=== PATIENT | female | born 1945 | race African-American/Black ===

== ENCOUNTER 2018-06-10 20:25 | Observation (INO) ==
--- NOTE | 2018-06-10 14:13 | EKG Report ---
Test Performed on : 06/10/2018 2:13:37 PM Test Reason : CP Blood Pressure : / mmHG Vent. Rate : 064 BPM Atrial Rate : 064 BPM P-R Int : 166 ms QRS Dur : 076 ms QT Int : 438 ms P-R-T Axes : 075 053 059 degrees QTc Int : 451 ms Normal sinus rhythm. Normal ECG When compared with ECG of 11-APR-2018 09:42, (Unconfirmed) No significant change was found Unconfirmed Result
--- NOTE | 2018-06-10 14:47 | Diag Imaging Result Doc PS360 ---
EXAM: CHEST-2 VIEWS 06/10/2018 HISTORY: chest pain TECHNIQUE: PA and lateral chest COMMENT: There is a Port-A-Cath on the right with its tip just above the right atrium. There is apparent fibrosis in the posterior costophrenic sulcus laterally on the right. Overall there has been no significant change since 02/17/2016. IMPRESSION: Stable chest. Electronically signed by Henry Paez 06/10/2018 2:45 PM
[2018-06-10 15:23] LABS: BASO# 0.04 X1000 (0.0-0.2); BASO% 0.8 % (0.0-0.8); EOS% 7.6 % (0.0-10.0); HEMATOCRIT 41.3 % (37.0-47.0); HEMOGLOBIN 13.6 g/dL (12.0-16.0); LYMPH# 2.18 X1000 (1.2-3.4); LYMPH% 41.7 % (20.5-51.1); MCH 32.2 PG (27-31); MCHC 32.9 g/dL (33-37); MCV 97.9 FL (81-99); MONO# 0.51 X1000 (0.11-0.59); MONO% 9.8 % (1.7-9.3); MPV 11.2 FL (7.4-10.4); NEUT% 40.1 % (42.2-75.2); PLT 149 X1000 (130-400); RBC 4.22 XMIL (4.2-5.4); RDW 12.5 % (11.5-14.5); WBC 5.23 X1000 (4.8-10.8)
[2018-06-10 15:31] LABS: INR 0.99; PROTIME 13.9 Seconds (11.0-16.0)
[2018-06-10 15:32] LABS: PTT 31.1 Seconds (22.3-41.8)
[2018-06-10 15:34] LABS: ALB/GLOB RATIO 1.4; ALBUMIN 3.7 g/dL (3.5-5.0); CALCIUM 8.2 mg/dL (8.8-10.2); CREATININE 1.1 mg/dL (0.5-0.9); POTASSIUM 3.6 mmol/L (3.5-5.1); TOTAL BILIRUBIN 0.6 mg/dL (0.20-1.00); TOTAL PROTEIN 6.3 g/dL (6.3-8.3)
--- NOTE | 2018-06-10 18:59 | PROVIDER DOCUMENTATION ---
This chart was entered by Sonia Michael Scribe, acting as scribe for Benton Vega MD. HPI-Chest Pain - General Chief Complaint: Chest Pain Stated Complaint: CHEST PAIN,SHOULDER,BACK PAIN Time Seen by Provider: 06/10/18 14:28 Source: patient, family () Allergies/Adverse Reactions: Patient Allergies Allergy/AdvReac Type Severity Reaction Status Date / Time codeine AdvReac Intermediate NAUSEA Verified 04/11/18 11:05 morphine AdvReac Intermediate ITCHING Verified 04/11/18 11:05 Home Medications: Home Medication List Medication Instructions Recorded Confirmed Last Taken Type Amlodipine Besylate [Norvasc] 10 mg PO QAM 02/17/12 04/11/18 08/08/17 06:00 History Aspirin 325 mg PO QAM 09/22/12 04/11/18 08/08/17 06:00 History Metoprolol [Lopressor] 25 mg PO QAM 02/20/13 04/11/18 08/08/17 06:00 History Ezetimibe [Zetia] 10 mg PO QHS 08/12/14 04/11/18 08/07/17 21:00 History Nitroglycerin Sl [Nitroglycerin] 0.4 mg SL PRN PRN 02/03/15 04/11/18 07/20/15 History Potassium Chloride 1 each PO DAILY 05/25/15 04/11/18 08/08/17 06:00 History SIMVAstatin [Zocor] 40 mg PO HS 05/25/15 04/11/18 08/07/17 21:00 History Triamterene/Hydrochlorothiazid 1 each PO DAILY 05/25/15 04/11/18 08/08/17 06:00 History [Triamterene-Hctz 37.5-25 mg Cp] Promethazine [Phenergan] 1 - 2 tab PO Q6H PRN PRN #18 tablet 07/08/15 04/11/18 07/20/15 Rx Tramadol [Ultram] 50 mg PO Q6H PRN PRN #30 tablet 07/08/15 04/11/18 08/08/17 16: 00 Rx Famotidine [Pepcid] 20 mg PO DAILY PRN 02/17/16 04/11/18 Unknown History Hydrocodone/APAP 5 mg/325 mg 1 ea PO Q6H PRN PRN #12 tab 08/08/17 04/11/18 Unknown Rx [[place]-5] Ondansetron Odt [Zofran 4 mg Odt] 4 mg PO Q6H PRN PRN #20 tab 08/08/17 04/11/18 Unknown Rx Methocarbamol [Robaxin-750] 750 mg PO BID PRN #60 tablet 04/11/18 Unknown Rx Naproxen 500 mg PO BID PRN PRN #60 tablet 04/11/18 Unknown Rx - History of Present Illness-CP Nature of Presenting Problem: 73 yobf presents to the ed with her at bedside. pt sts has intermittent chest pain 8/10 radiating into eft neck and shoulder onset last night pt sts still present on exam Location: reports: substernal Chest Pain Radiation: reports: neck, shoulders Quality of Pain: reports: aching Severity in ED: moderate (8/10) Onset/Duration: last night Timing: still present, intermittent Context/Activities at Onset: reports: light activity Modifying Factors: improves with: nothing Associated Symptoms: reports: denies symptoms Nitro Today/Relief: no nitro taken today Aspirin Treatment Today: 325 mg x 1, provided at home Similar Symptoms Previously?: Yes Recently Seen Here or By Another Healthcare Provider: No Review of Systems - Adult - REVIEW OF SYSTEMS - ADULT Constitutional: denies: chills, fever Eyes: reports: no symptoms reported Ears, Nose, Mouth & Throat: reports: no symptoms reported Cardiovascular: reports: see HPI, chest pain, edema. denies: palpitations, syncope Respiratory: denies: cough, shortness of breath, wheezing Gastrointestinal: denies: abdominal pain, diarrhea, nausea Genitourinary: reports: no symptoms reported Musculoskeletal: reports: see HPI, joint pain (shoulder), neck pain Integumentary: reports: no symptoms reported Neurological: denies: dizziness/vertigo, headache/migraines Psychiatric: reports: no symptoms reported Endocrine: reports: no symptoms reported Hematologic/Lymphatic: reports: no symptoms reported Allergic/Immunologic: reports: no symptoms reported All Other Systems: Reviewed and Negative Past History - Adult - PAST MEDICAL HISTORY-ADULT Review of Records: reports: Old Records Reviewed, Nursing Assessment Review, Medications Reviewed, Social history reviewed & non-contributory. Major Childhood Illnesses: reports: denies history Cardiovascular: reports: CAD, HTN, hyperlipidemia Respiratory: reports: COPD Gastrointestinal: reports: GERD Obstetrical/Gynecological: reports: denies history Genitourinary: reports: denies history Musculoskeletal: reports: other (gout) Neurological: reports: TIA Psychiatric: reports: anxiety Endocrine/Immune: reports: denies history Other Conditions: reports: denies history - PRIOR SURGERIES/PROCEDURES Surgical/Procedure History: reports: appendectomy, colonoscopy, cholecystectomy (breast biopsy, FEM-POP Bypass), cardiac stent (x2), hysterectomy, other ( breast biopsy, FEM-POP ) - PRIOR HOSPITALIZATIONS Prior Hospitalizations: reports: none - IMMUNIZATION STATUS Childhood Immunizations: See Nurse Assessment Flu Vaccine: See Nurse Assessment - FAMILY HISTORY Family History: reviewed, not pertinent - SOCIAL HISTORY Smoking: quit greater than 1 year Substance Use: denies Alcohol Use Frequency: never Living Situation: family Physical Exam-General - PHYSICAL EXAM-ADULT Initial Vital Signs Reviewed: Yes - CONSTITUTIONAL General Appearance: alert, mild distress, obese - EYES Eyes: PERRL/EOMI, pink conjunctivae - HEAD, EARS, NOSE, MOUTH & THROAT HENMT: moist mucous membranes, normal ENT inspection - NECK Neck: non-tender, full range of motion - RESPIRATORY Respiratory: lungs clear, normal breath sounds - CARDIOVASCULAR Cardiovascular: normal peripheral pulses, regular rate, rhythm - GASTROINTESTINAL (ABDOMEN) Abdominal Exam: normal bowel sounds, non tender, soft - LYMPHATIC Lymphatic: no adenopathy - MUSCULOSKELETAL Back Exam: normal inspection, no CVA tenderness, no vertebral tenderness Extremity: normal range of motion, non-tender, normal gait, normal capillary refill, swelling (BLE edema) - SKIN Integumentary: normal color, normal turgor, warm/dry - NEUROLOGIC Neurologic: grossly normal, no motor/sensory deficits - PSYCHIATRIC Psych/Mental Status: normal mood/affect, normal thought content, normal thought process, oriented x 3 Progress - PLAN OF CARE/RESULTS Progress/Plan/Lab Results: Vital Signs - 8 hr 06/10/18 14:05 06/10/18 17:54 Temperature 98.3 F Pulse Rate 67 63 Respiratory Rate 18 12 Blood Pressure 184/69 146/87 O2 Sat by Pulse Oximetry 99 95 Laboratory Results - last 24 hr 06/10/18 06/10/18 06/10/18 15:03 15:03 15:03 WBC 5.23 RBC 4.22 Hgb 13.6 Hct 41.3 MCV 97.9 MCH 32.2 H MCHC 32.9 L RDW Std Deviation 12.5 Plt Count 149 MPV 11.2 H Immature Gran % (Auto) 0.0 Neut % (Auto) 40.1 L Lymph % (Auto) 41.7 [place] % (Auto) 9.8 H Eos % (Auto) 7.6 Baso % (Auto) 0.8 Immature Gran # (Auto) 0.00 Neut # (Auto) 2.10 Lymph # (Auto) 2.18 [place] # (Auto) 0.51 Eos # (Auto) 0.40 Baso # (Auto) 0.04 PT INR PTT (Actin FS) D-Dimer, Quantitative Sodium 142 Potassium 3.6 Chloride 105 Carbon Dioxide 27 Anion Gap 10 BUN 21 Creatinine 1.1 H Estimated GFR/1.73 m2 59 BUN/Creatinine Ratio 19 Glucose 114 H Calculated Osmolality 287 Calcium 8.2 L Total Bilirubin 0.60 AST 30 ALT 25 Alkaline Phosphatase 75 Creatine Kinase 87 Troponin T Cgo-X-Athkulrqcac Pept 395 H Total Protein 6.3 Albumin 3.7 Globulin 2.6 Albumin/Globulin Ratio 1.4 06/10/18 06/10/18 06/10/18 15:03 15:03 16:06 WBC RBC Hgb Hct MCV MCH MCHC RDW Std Deviation Plt Count MPV Immature Gran % (Auto) Neut % (Auto) Lymph % (Auto) [place] % (Auto) Eos % (Auto) Baso % (Auto) Immature Gran # (Auto) Neut # (Auto) Lymph # (Auto) [place] # (Auto) Eos # (Auto) Baso # (Auto) PT 13.9 INR 0.99 PTT (Actin FS) 31.1 D-Dimer, Quantitative 4.84 H Sodium Potassium Chloride Carbon Dioxide Anion Gap BUN Creatinine Estimated GFR/1.73 m2 BUN/Creatinine Ratio Glucose Calculated Osmolality Calcium Total Bilirubin AST ALT Alkaline Phosphatase Creatine Kinase Troponin T < 0.010 Mzh-N-Dhcvgzfwjey Pept Total Protein Albumin Globulin Albumin/Globulin Ratio Orders Category Date Time Status Cardiac Monitoring DIRECTED Care 06/10/18 14:08 Active Saline Loc NOW Care 06/10/18 14:08 Active CHEST-2 VIEWS [RAD] Stat Exams 06/10/18 14:[address] ANGIOGRM PULMONARY ARTERIES [CT] Stat Exams 06/10/18 17:04 Taken CBC WITH ELECTRONIC DIFF [HEME] Stat Lab 06/10/18 15:03 Completed CK PROFILE [SP CHEM] Stat Lab 06/10/18 15:03 Completed COMPREHENSIVE METABOLIC PANEL [CHEM] Stat Lab 06/10/18 15:03 Completed D-DIMER [COAG] Stat Lab 06/10/18 15:03 Completed PRO B-NATRIURETIC PEPTIDE Stat Lab 06/10/18 15:03 Completed PROTIME WITH INR [COAG] Stat Lab 06/10/18 15:03 Completed PTT [COAG] Stat Lab 06/10/18 15:03 Completed TROPONIN T Stat Lab 06/10/18 16:06 Completed Aspirin Med 06/10/18 14:07 Discontinued 325 mg PO NOW ONE Morphine Med 06/10/18 15:43 Discontinued 4 mg IV NOW ONE Nitroglycerin Sl [Nitroglycerin] Med 06/10/18 14:28 Discontinued 0.4 mg SL NOW ONE Ondansetron [Zofran] Med 06/10/18 15:43 Discontinued 4 mg IV NOW ONE CP/SOB/Palp >45 yrs of Age Stat Oth 06/10/18 14:07 Ordered EKG [EKG] Stat Ther 06/10/18 14:08 Draft hearts score 3 Result Diagrams: 06/10/18 15:03 06/10/18 15:03 - REASSESSMENT Reassessment #1 Time Reassessed: 15:31 Status: unchanged Reassessment #2 Time Reassessed: 17:03 Status: improving (pain bettrer, troponin nl, d-dimer up: CTA chest) - EKG 1 Time of EKG reading by physician:: 14:11 EKG Read and Signed by:: Benton Vega EKG Interpretation (*Must complete 3 of following elements*): Normal Rate: 64 Rhythm: nsr [place]: normal QRS: normal IN Interval: normal ST Wave: normal - XRAY 1 XRAY: Bilateral XRAY Study: Chest (EXAM: CHEST-2 VIEWS 06/10/2018 HISTORY: chest pain TECHNIQUE: PA and lateral chest COMMENT: There is a Port-A-Cath on the right with its tip just above the right atrium. There is apparent fibrosis in the posterior costophrenic sulcus laterally on the right. Overall there has been no significant change since 02/17/2016. IMPRESSION: Stable chest. Electronically signed by Henry Paez 06/10/2018 2:45 PM 06/10/18 1445 Interpreting Physician: Henry Paez MD Dictated Date/Time: 1444 cc: Benton Vega MD; Juma Trejo MD) 2 XRAY Study: Chest Impression: See EMR Report Comparison with other Films: no changes (CTA CHEST APPEARS NL STUDY TO MY READING, AWAIT RADIOLOGIST REPORT WELL.) Departure - Departure Date of Disposition Decision: 06/10/18 Time of Disposition Decision: 18:57 DIAGNOSIS: Chest pain Disposition: ADMITTED INPATIENT 09 Certified Medical Emergency: Emergent Condition: Stable Referrals and Follow-Ups: Juma Trejo MD [Primary Care Provider] - - Critical Care Note This patient required my direct & personal management of CC.: No Attestation - Physician/ NELSON Attestation Patient care was provided by Advanced Practice Provider:: No The physician spent face to face time with patient:: Yes Advanced Practice Provider documentation review:: Supervising physician onsite and consulted in the evaluation and care of this patient. The physician did have a face to face encounter with the patient. This chart was documented by the indicated scribe, (Sonia Michael Scribe) and accurately reflects the services I performed and decisions made by me, Benton Vega MD, as attested by the provider's signature.
--- NOTE | 2018-06-10 19:26 | Diag Imaging Result Doc PS360 ---
EXAM: CT ANGIOGRM PULMONARY ARTERIES INDICATION: CP, elevated d-dimer TECHNIQUE: This exam was performed using automated exposure control, adjustment of mA or kV according to patient size, and/or use of iterative reconstruction technique. Thin section axial images and 3-D MIPS were obtained. COMPARISON: 10/19/2013 FINDINGS: There is no evidence of pulmonary embolism. There is extensive atherosclerotic disease involving the thoracic aorta that is similar to the previous study. There is no evidence of aortic aneurysm or dissection. The heart appears mildly prominent. There is extensive coronary artery atherosclerotic calcification. There are calcified mediastinal lymph nodes indicating prior granulomatous disease. There is moderate pulmonary emphysema, stable. There is dependent mild subsegmental atelectasis bilaterally. There is also mild fibrotic change at the peripheries of both lungs. There is no pleural fluid collection and no pneumothorax. Limited views of the upper abdomen reveals a simple appearing cyst at the upper pole of the right kidney. The renal cortex appears lobulated bilaterally suggesting renal cortical scarring or persistent lobulations. IMPRESSION: 1.Mild bilateral dependent atelectasis. 2.Cardiomegaly and extensive atherosclerotic disease involving the aorta and coronary arteries. 3.No evidence of pulmonary embolism. 4.Other external/nonacute findings detailed above. Electronically signed by Desmond Ferris 06/10/2018 7:23 PM
[~2018-06-10 20:25] MED LIST: ASPIRIN PO ONE; MORPHINE IV ONE; MORPHINE IV PRN; NAPROSYN PO PRN; NITROGLYCERIN SL ONE; PEPCID PO PRN; ROBAXIN PO PRN; ULTRAM PO PRN; ZOFRAN IV ONE
[2018-06-10] MEDS ORDERED: ZOCOR PO SCH (21:00)
[2018-06-10] MEDS ORDERED: ZETIA PO SCH (21:00)
[2018-06-10] MEDS ORDERED: SODIUM CHLORIDE 0.9% INJ SCH (22:00)
[2018-06-10] MEDS ORDERED: PROTONIX IV SCH (22:00)
--- NOTE | 2018-06-10 22:18 | HISTORY AND PHYSICAL ---
CHIEF COMPLAINT: The patient is complaining of precordial Chest pain HISTORY OF PRESENT ILLNESS: She is a 73-year-old female, who basically came in with chest pain radiating to the left side of the neck. ER workup revealed normal cardiac enzymes. EKG nondiagnostic. Positive D-dimer. CT scan showed negative PE, except multiple coronary calcifications. Basically, admitted to the hospital for rule out DE and further workup. Patient is well-known to Dr. Contreras. PAST MEDICAL HISTORY: CAD with a stent in the LAD. Calcium score is 400. Hypertension, gout, hyperlipidemia, metabolic syndrome, peripheral vascular disease. Abnormal pancreatic duct, nonspecific, dilated 2.2 cm. PAST SURGICAL HISTORY: Colonoscopy in 2009, hiatal bifemoral bypass by Dr. Delgado in 1989, LAD stent, breast lumpectomy, benign, cholecystectomy, hysterectomy. Port-A-Cath on the right side. MEDICINES: Aspirin 325 daily, Crestor 40 daily, Lasix 20 daily, lisinopril 20 daily, metoprolol 25 daily, Norvasc 10 daily, potassium 10 mEq daily, Ultram 50 t.i.d., Zetia 10 mg daily. ALLERGIES: Not known. SOCIAL HISTORY: for 30 years. No smoking, no alcohol, no drug abuse. FAMILY HISTORY: Father at 83 from heart problems. Mom of heart attack and stroke. HEALTH MAINTENANCE: Flu vaccine 2017. Pneumococcal 2014. Last mammography, DEXA scan 11/2017. Last colonoscopy [place] [address] Lagunas. REVIEW OF SYSTEMS: HEENT: No headache. No vision problem. No earache. No sore throat. Neck: No goiter. No lymphadenopathy. No bruit. Cardiopulmonary: Chest pain, precordial, nonexertional. No PND. No orthopnea. No dizziness. Gastrointestinal: No nausea, vomiting, abdominal pain. : No history of hesitancy, frequency, dysuria. No swelling of feet. No joint pain. Neurologic: No focal symptoms or weakness. PHYSICAL EXAMINATION: VITAL SIGNS: Temperature is 98 degrees, pulse is 60. Vitals are stable. 5 feet 8, 160 pounds. HEENT: Atraumatic, normocephalic. Pupils equal, react to light. TMs are normal. Nose and throat within normal limits. NECK: Supple. No lymphadenopathy. No goiter. CHEST: Bilateral air entry. HEART: Sounds are regular. No murmur. ABDOMEN: Belly is soft, nontender. Good bowel sounds. EXTREMITIES: No peripheral edema or cyanosis. NEUROLOGIC: No obvious neurological deficits. INVESTIGATIONS: CBC is normal. PT/INR normal. D-dimer is high. SMA-7 is normal. Glucose 114. Cardiac enzymes were negative. ProBNP was normal. CT pulmonary angiogram: Cardiomegaly with extensive atherosclerotic disease. No evidence of PE. EKG: Normal sinus, nothing acute. Chest x-ray: Port on the right side. No significant changes. ASSESSMENT AND PLAN: 1. A 73-year-old female with existing heart disease, who came in with chest pain, with underlying coronary calcifications, positive D-dimer. Ruled out for pulmonary embolism. Came in basically for rule out myocardial infarction, and also needs a stress test. Will set up if the enzymes are negative. Reconcile home medications. 2. Deep venous thrombosis prophylaxis with Lovenox. 3. Gastrointestinal prophylaxis with IV Protonix. 4. Continue nitroglycerin, morphine for pain. 5. Will follow up. cc: Lacho Trejo MD MTDD
[2018-06-10] MEDS: NITROGLYCERIN SL PRN (22:30)
[2018-06-10] MEDS ORDERED: MORPHINE IV PRN (23:07)
[2018-06-10] MEDS ORDERED: MORPHINE ONE (23:10)
[2018-06-11 07:13] LABS: CHOLESTEROL 142 mg/dL (0-200); CK PROFILE 63 U/L (24-173); HDL 70 mg/dL (45-65); LDL 60 mg/dL; TRIGLYCERIDES 62 mg/dL (35-135); VLDL 12 mg/dL
--- NOTE | 2018-06-11 07:16 | EKG Report ---
Test Performed on : 06/11/2018 06:58:49 AM Test Reason : cp Blood Pressure : / mmHG Vent. Rate : 064 BPM Atrial Rate : 064 BPM P-R Int : 162 ms QRS Dur : 086 ms QT Int : 440 ms P-R-T Axes : 073 043 054 degrees QTc Int : 453 ms Normal sinus rhythm. Normal ECG When compared with ECG of 10-JUN-2018 22:25, (Unconfirmed) No significant change was found Confirmed by Gerald HANSEN, Igor Olivares ([id number]) on 06/11/2018 8:22:11 AM
--- NOTE | 2018-06-11 07:21 | EKG Report ---
Test Performed on : 06/10/2018 10:25:43 PM Test Reason : Chest Pain Blood Pressure : / mmHG Vent. Rate : 065 BPM Atrial Rate : 065 BPM P-R Int : 150 ms QRS Dur : 078 ms QT Int : 434 ms P-R-T Axes : 081 043 060 degrees QTc Int : 451 ms Normal sinus rhythm. Normal ECG When compared with ECG of 10-JUN-2018 14:13, (Unconfirmed) No significant change was found Confirmed by Gerald HANSEN, Igor Olivares ([id number]) on 06/11/2018 8:10:19 AM
[2018-06-11] MEDS ORDERED: DYAZIDE PO SCH (09:00)
[2018-06-11] MEDS ORDERED: NORVASC PO SCH (09:00)
[2018-06-11] MEDS ORDERED: LOVENOX SUBQ SCH (09:00)
[2018-06-11] MEDS ORDERED: LOPRESSOR PO SCH (09:00)
[2018-06-11] MEDS ORDERED: CRESTOR PO SCH (09:00)
[2018-06-11] MEDS ORDERED: ASPIRIN PO SCH (09:00)
[2018-06-11] MEDS ORDERED: LEXISCAN ONE (09:37)
[2018-06-11] MEDS ORDERED: ULTRAM PO PRN (12:50)
[2018-06-11] MEDS: NITROGLYCERIN SL PRN (13:11)
[2018-06-11 16:26] VITALS: BP 148/64
[2018-06-11] MEDS ORDERED: PREVNAR 13 IM ONE (17:12)
--- NOTE | 2018-06-11 19:40 | Diag Imaging Result Document ---
PROCEDURE NAME: MYOCARDIAL PERF SCAN, STR/REST - 06/11/2018 INDICATION: Chest pain. DESCRIPTION: The patient came into the nuclear lab and received a rest injection of technetium 99 sestamibi 12 mCi. Multiple tomographic views of the cardiac structures were obtained at rest. Subsequently the patient underwent infusion of Lexiscan 0.4 mg. At peak infusion, injected with technetium 99 sestamibi 34.4 mCi. Multiple tomographic views of the cardiac structures were obtained following completion of the protocol. SUMMARY OF ELECTROCARDIOGRAPHIC PORTION OF STUDY: Resting ECG shows sinus rhythm, rate 63 beats per minute. Resting blood pressure 159/76. Resting ECG shows no significant abnormality. During the protocol, the heart rate increased to a maximum of 88 beats per minute. Her blood pressure dropped to 146/68. The patient reported no chest pain, shortness of breath or palpitations. ECG showed occasional PVCs. Following the completion of the infusion, the heart rate and blood pressure returned back to baseline. In summary, electrocardiographic response to infusion of Lexiscan is unremarkable. SUMMARY OF MYOCARDIAL PERFUSION PORTION OF STUDY: Poststress tomographic views of the left ventricle show normal homogeneous distribution of radiotracer throughout the entire length of the myocardium. There is no evidence of any poststress defect. Rest images showed normal perfusion. Polar plots revealed the same. There is no evidence of any inducible ischemia. No myocardial scar. Gated SPECT showed normal left ventricular systolic function. Ejection fraction was estimated at 76%. Normal ventricular volumes. No wall motion abnormality. The lung/heart ratio is normal. SUMMARY: This study shows: 1. Normal electrocardiographic response to infusion of Lexiscan. 2. Normal poststress myocardial perfusion scan. No scintigraphic evidence of pharmacologically induced myocardial ischemia utilizing Lexiscan protocol. 3. Normal left ventricular systolic function. Ejection fraction is estimated at 76% with normal ventricular volumes and no wall motion abnormality. This study represents low risk for ischemic events. cc: MD Lacho Pool MD
--- NOTE | 2018-06-13 00:29 | DISCHARGE SUMMARY ---
ADMISSION DATE: 06/10/2018 DISCHARGE DATE: 06/11/2018 DISCHARGE DIAGNOSIS: Atypical chest pain with underlying coronary artery disease. SECONDARY DIAGNOSES: 1. Coronary artery disease with a stent in the left anterior descending. 2. Abnormal CT with a calcium score of 400. 3. Hypertension. 4. Gout. 5. Hyperlipidemia. 6. Metabolic syndrome. 7. Peripheral vascular disease, status post aortobifemoral bypass surgery. 8. Abnormal pancreatic duct, nonspecific. 9. Port-A-Cath on the right side. PROCEDURES: Myocardial perfusion scan reported negative. BRIEF HISTORY: Please see the H and P that was done on 06/10/2018. In brief, she is a 73-year- old female with the above problems, who came in with chest pain going to the left shoulder. She was seen 2 days before to my office. The patient had an appointment to see Dr. Contreras yesterday. However, she came to the ER by the family members. The patient continued to have chest pain. EKG was negative. Cardiac enzymes were negative. The patient has a positive D-dimer subsequent to rule out for pulmonary embolism in the CT scan. LABORATORIES: CBC: White cell count 5.3, hematocrit 41, platelets 149,000. PT /INR is normal. D- dimer 4.84. SMA-7 is normal. Cardiac enzymes are normal. ProBNP is normal. Triglycerides 62, cholesterol 152, LDL 60, HDL 70. RADIOLOGY PROCEDURES: CT pulmonary angiogram negative for pulmonary embolism, cardiomegaly with atherosclerotic changes. Myocardial perfusion scan normal. Electrocardiography response to the infusion of Lexiscan, normal post-stress myocardial perfusion scan. EF is 76%. CONDITION ON DISCHARGE/DISCHARGE INSTRUCTIONS: The findings were discussed with the family and discharged home in stable condition with the following instructions. 1. Zeita 10 mg daily, Lasix 40 in the morning, metoprolol 25 daily, Crestor 40 daily, amlodipine 10 daily, potassium citrate 10 mEq daily, aspirin 81 mg daily. 2. Continue secondary prevention. The LDL is less than 70. Aspirin, beta blockers. We will work for noncardiac causes. Findings were reassuring. 3. Follow up with Dr. Contreras as well as for maintenance treatment for underlying coronary artery disease. cc: MD Bassam Witt MD [facility]
== END 2018-06-11 18:19 | disposition home or self-care (01) ==
LOC: DIRADM 20:25 → 3N 06-11 11:27 → DIRADM 06-11 11:28 → UNDODISIN 06-11 18:19 → ED 06-11 18:19
PROVIDERS: ADMIT Family Medicine; ATTEND Family Medicine
CPT/HCPCS: 71020; 71046; 71275; 78452; 80053; 80061; 82550; 83880; 84484; 85025; 85379; 85610; 85730; 90670; 93005; 93010; 93017; 96374; 99285; A9270; A9500; C9113; J1650; J2270; J2405; J2785; Q9967; S0164